=== PATIENT | female | born 1945 | race African-American/Black ===

== ENCOUNTER 2020-11-19 14:29 | Inpatient (IN) | payer OTHER ==
[~2020-11-19] VITALS: Ht 170.2 cm; Wt 58.1 kg
[2020-11-19 15:26] LABS: BASOPHILS % 0.8 % (0.0-2.0); EOSINOPHILS % 8.5 % (0.0-5.0); HEMATOCRIT. 34.6 % (36.0-48.0); HEMOGLOBIN. 11.4 g/dL (12.0-16.0); LYMPHOCYTES % 16.9 % (20.0-50.0); MEAN CORPUSCULAR HEMOGLOBIN 31.3 pg (28.0-32.0); MEAN CORPUSCULAR VOLUME 95.1 fL (81.0-99.0); MEAN PLATELET VOLUME 8.9 fl (7.4-10.4); MONOCYTES % 11.6 % (2.0-8.0); NEUTROPHILS % 62.2 % (40.0-76.0); PLATELET 129 x1000/uL (130-400); RED BLOOD CELL COUNT 3.63 mill/uL (4.2-5.4); RED CELL DISTRIBUTION WIDTH 16.1 % (11.6-14.6)
[2020-11-19 15:34] LABS: CHLORIDE 102 mEq/L (98-107)
[2020-11-19 15:35] LABS: PROTHROMBIN TIME 10.8 sec (9.6-11.0)
[2020-11-19 15:38] LABS: ETHANOL BLOOD < 10 mg/dL
[2020-11-19] MEDS ORDERED: ONDANSETRON HCL 4MG/2ML INJ IV PRN (19:30)
[2020-11-19] MEDS ORDERED: DIPHENHYDRAMINE 50MG/ML VIAL IV PRN (19:30)
[2020-11-19] MEDS ORDERED: AZITHROMYCIN 500 MG in DEXT 5% WATER 250 ML IV SCH (19:30)
[2020-11-19] MEDS: AZITHROMYCIN 500MG in DEXTROSE 5% WATER 250ML IV SCH (20:45)
[2020-11-19 21:05] LABS: C REACTIVE PROTEIN CARDIAC 1.3 mg/L (0.00-3.00)
[2020-11-20] MEDS: CLONIDINE 0.1MG TABLET PO PRN ×2 (02:21→09:47)
[2020-11-20] MEDS ORDERED: ZOLPIDEM TARTRATE 5MG TABLET PO PRN (05:00)
[2020-11-20 05:44] LABS: CHLORIDE 100 mEq/L (98-107)
[2020-11-20 05:51] LABS: LDL CHOLESTEROL 91 mg/dL (5-100)
[2020-11-20 05:52] LABS: HDL CHOLESTEROL 61 mg/dL (40-59)
[2020-11-20] MEDS ORDERED: ATORVASTATIN CALCIUM 40MG TABLET PO SCH (06:15)
[2020-11-20 06:24] LABS: BASOPHILS % 1.2 % (0.0-2.0); EOSINOPHILS % 6.4 % (0.0-5.0); HEMATOCRIT. 32.4 % (36.0-48.0); HEMOGLOBIN. 10.8 g/dL (12.0-16.0); MEAN CORPUSCULAR HEMOGLOBIN 31.5 pg (28.0-32.0); MEAN CORPUSCULAR VOLUME 94.6 fL (81.0-99.0); MONOCYTES % 13.9 % (2.0-8.0); NEUTROPHILS % 58.5 % (40.0-76.0); PLATELET 150 x1000/uL (130-400); RED BLOOD CELL COUNT 3.42 mill/uL (4.2-5.4); RED CELL DISTRIBUTION WIDTH 16.3 % (11.6-14.6)
[2020-11-20] MEDS ORDERED: ASPIRIN 325MG EC TABLET PO SCH (07:00)
[2020-11-20] MEDS ORDERED: ENOXAPARIN 60MG/0.6ML SYR SUBCUT SCH (07:00)
[2020-11-20] MEDS: NITROGLYCERIN OINT 1GM/INCH UDPKT TD SCH ×2 (11:20→20:33)
[2020-11-20] MEDS: AMLODIPINE 2.5MG TABLET PO SCH ×2 (12:30→20:33)
[2020-11-20 14:00] VITALS: BP 157/86
[2020-11-20 14:40] VITALS: BP 157/86
[2020-11-20 16:00] VITALS: BP 143/81
[2020-11-20 20:00] VITALS: BP 117/65
[2020-11-20] MEDS: AZITHROMYCIN 500MG in DEXTROSE 5% WATER 250ML IV SCH (20:33)
[2020-11-21] VITALS: BP 159/71
[2020-11-21] MEDS: NITROGLYCERIN OINT 1GM/INCH UDPKT TD SCH ×4 (02:45→21:47)
[2020-11-21 04:00] VITALS: BP 108/66
[2020-11-21 05:37] LABS: BASOPHILS % 1.1 % (0.0-2.0); EOSINOPHILS % 10.8 % (0.0-5.0); HEMATOCRIT. 33.1 % (36.0-48.0); HEMOGLOBIN. 10.9 g/dL (12.0-16.0); LYMPHOCYTES % 30.7 % (20.0-50.0); MEAN CORPUSCULAR HEMOGLOBIN 31.5 pg (28.0-32.0); MEAN CORPUSCULAR VOLUME 95.2 fL (81.0-99.0); MEAN PLATELET VOLUME 9.1 fl (7.4-10.4); MONOCYTES % 12.4 % (2.0-8.0); PLATELET 142 x1000/uL (130-400); RED BLOOD CELL COUNT 3.48 mill/uL (4.2-5.4); RED CELL DISTRIBUTION WIDTH 16.1 % (11.6-14.6)
[2020-11-21 06:11] LABS: PHOSPHORUS 4.4 mg/dL (2.5-4.9)
[2020-11-21] MEDS ORDERED: DIPHENHYDRAMINE 50MG/ML VIAL IV PRN (09:00)
[2020-11-21] MEDS ORDERED: DIPHENHYDRAMINE 25MG CAPSULE PO PRN (09:00)
[2020-11-21] MEDS: AMLODIPINE 2.5MG TABLET PO SCH ×2 (09:20→21:47)
[2020-11-21 10:00] VITALS: BP 167/76
[2020-11-21] MEDS: ASPIRIN 81MG EC TABLET PO SCH (12:24)
[2020-11-21] MEDS: CLOPIDOGREL 75MG TABLET PO SCH (12:24)
[2020-11-21 16:00] VITALS: BP 165/76
[2020-11-21 20:30] VITALS: BP 184/85
[2020-11-21] MEDS: AZITHROMYCIN 500MG in DEXTROSE 5% WATER 250ML IV SCH (21:45)
[2020-11-21] MEDS: CLONIDINE 0.1MG TABLET PO PRN (21:49)
[2020-11-22] VITALS: BP 143/72
[2020-11-22 04:00] VITALS: BP 149/72
[2020-11-22] MEDS: NITROGLYCERIN OINT 1GM/INCH UDPKT TD SCH ×2 (06:28→13:30)
[2020-11-22 08:00] VITALS: BP 129/80
[2020-11-22] MEDS: CLOPIDOGREL 75MG TABLET PO SCH (09:00)
[2020-11-22] MEDS: AMLODIPINE 2.5MG TABLET PO SCH (09:06)
[2020-11-22] MEDS: ASPIRIN 81MG EC TABLET PO SCH (09:06)
[2020-11-22] MEDS: ACETAMINOPHEN 325MG TABLET PO PRN ×2 (09:08→13:30)
[2020-11-22 10:25] LABS: BASOPHILS % 1.2 % (0.0-2.0); EOSINOPHILS % 9.7 % (0.0-5.0); HEMOGLOBIN. 11.7 g/dL (12.0-16.0); LYMPHOCYTES % 16.9 % (20.0-50.0); MEAN CORPUSCULAR HEMOGLOBIN 31.7 pg (28.0-32.0); MEAN CORPUSCULAR VOLUME 94.6 fL (81.0-99.0); MEAN PLATELET VOLUME 8.8 fl (7.4-10.4); MONOCYTES % 10.6 % (2.0-8.0); NEUTROPHILS % 61.6 % (40.0-76.0); PLATELET 148 x1000/uL (130-400); RED CELL DISTRIBUTION WIDTH 15.5 % (11.6-14.6)
[2020-11-22 10:37] LABS: PHOSPHORUS 3.3 mg/dL (2.5-4.9)
[2020-11-22 12:00] VITALS: BP 151/79
[2020-11-22] MEDS ORDERED: ASPI-1406 PO (14:22)
[2020-11-22] MEDS ORDERED: CLOP75TA15 PO (14:22)
[2020-11-22] MEDS ORDERED: ATOR20TA65 MT (14:22)
[2020-11-22] MEDS ORDERED: AMLO2.5T45 PO (14:22)
[2020-11-22 14:41] VITALS: BP 151/79
[2020-11-22 16:00] VITALS: BP 161/83
[2020-11-22] MEDS ORDERED: CARVEDILOL 6.25 MG TABLET PO SCH (21:00)
== END 2020-11-22 17:36 | disposition home or self-care (01) | DRG 280 ==
LOC: ER 14:29 → MICUSO 17:54 → 3WST 11-20 07:48 → MICUSO 11-20 08:54 → 8WST 11-20 12:44 → 6WST 11-21 10:27
PROVIDERS: ADMIT Internal Medicine; ATTEND Internal Medicine
PROC: 5A1D70Z Performance of Urinary Filtration, Intermittent, Less than 6 Hours Per Day (ICD-10-PCS; principal; 2020-11-20)
DX: I21.4 Non-ST elevation (NSTEMI) myocardial infarction (principal); N18.6 End stage renal disease; I13.2 Hypertensive heart and chronic kidney disease with heart failure and with stage 5 chronic kidney disease, or end stage renal disease; I31.3 Pericardial effusion (noninflammatory); I42.2 Other hypertrophic cardiomyopathy; I95.1 Orthostatic hypotension; D63.8 Anemia in other chronic diseases classified elsewhere; D69.6 Thrombocytopenia, unspecified; E11.22 Type 2 diabetes mellitus with diabetic chronic kidney disease; E11.43 Type 2 diabetes mellitus with diabetic autonomic (poly)neuropathy; E78.5 Hyperlipidemia, unspecified; G90.8 Other disorders of autonomic nervous system; I50.9 Heart failure, unspecified; F41.9 Anxiety disorder, unspecified; Z20.822 Contact with and (suspected) exposure to COVID-19; L29.8 Other pruritus; Z79.02 Long term (current) use of antithrombotics/antiplatelets; I25.2 Old myocardial infarction; Z82.3 Family history of stroke; Z82.49 Family history of ischemic heart disease and other diseases of the circulatory system; Z99.2 Dependence on renal dialysis; Z79.899 Other long term (current) drug therapy; H91.10 Presbycusis, unspecified ear
CPT/HCPCS: 36415; 71045; 80048; 80053; 80061; 80320; 82728; 82962; 83605; 83615; 83735; 84100; 84443; 84484; 85025; 86141; 93005; 93306; 93970; 99285; J0456; J1200; J1650; J7040; J7060; Q0163; U0003; G0480